=== PATIENT | male | born 1985 | race Caucasian/White ===

== ENCOUNTER 2016-07-22 21:24 | Emergency (ER) | payer OTHER ==
[2016-07-22 21:29] VITALS: BP 124/85; PULSE 109; TEMP 99; BMI 32.3
--- NOTE | 2016-07-22 21:54 | PDOC ---
History of Present Illness - General Chief Complaint: Pain Stated Complaint: B/L POST HEEL PAIN Time Seen by Provider: 07/22/16 21:26 - History of Present Illness Initial Comments: This otherwise healthy 31-year-old man presents with bilateral heel pain the last several days. Patient relates that pain began after he tied laces of his athletic shoes particularly tightly prior to athletic activity several days ago. He felt pressure in the posterior ankle/heel area and subsequently developed swellings in the same area. Since then, the areas are tender and painful, especially with walking with certain shoes. He has no pain when he wears athletic shoes with well cushioned heel area. No previous history of Achilles tendon pain or rupture. He denies weakness of dorsiflexion/plantar flexion of either foot. Past History - Past Medical History Allergies/Adverse Reactions: Allergies Allergy/AdvReac Type Severity Reaction Status Date / Time No Known Allergies Allergy Verified 10/15/15 19:44 Home Medications: Ambulatory Orders Diclofenac Sodium [Voltaren -] 75 mg PO BID PRN #14 tablet. 07/22/16 Other medical history: DENIES - Psycho/Social/Smoking Cessation Hx Anxiety: No Suicidal Ideation: No Smoking Status: No Smoking History: Never smoked Number of Cigarettes Smoked Daily: 0 Hx Alcohol Use: No Drug/Substance Use Hx: No Substance Use Type: None Review of Systems - Review of Systems Able to Perform ROS?: Yes Comments:: 12 point review of systems is negative except for what is noted in the history of present illness *Physical Exam - Vital Signs Last Vital Signs Temp Pulse Resp BP Pulse Ox 99 F 109 H 18 124/85 97 07/22/16 21:26 07/22/16 21:26 07/22/16 21:26 07/22/16 21:26 07/22/16 21:26 - Physical Exam Comments: GENERAL: Adult male, alert and oriented 3, in no acute distres EXTREMITIES: Bilateral lower extremities1 cm x 1 cm firm, mildly tender, non- erythematous area of the posterior ankle just proximal to the heel, No step off of Achilles tendon palpated either side Dorsiflexion/plantar flexion of foot 5/5 bilaterally No calf tenderness or palpable masses NEUROLOGICAL: Cranial nerves II through XII grossly intact. Normal speech. No focal neurological deficits. MUSCULOSKELETAL: Back non-tender to palpation, no CVA tenderness SKIN: Warm, Dry, normal turgor, no rashes or lesions noted. *DC/Admit/Observation/Transfer Diagnosis at time of Disposition: Calcaneal bursitis Qualifiers: Laterality: unspecified laterality Qualified Code(s): M77.50 - Other enthesopathy of unspecified foot - Discharge Dispostion Disposition: HOME Condition at time of disposition: Stable - Prescriptions Prescriptions: Diclofenac Sodium [Voltaren -] 75 mg PO BID PRN #14 tablet.dr MIGUEL Reason: Moderate Pain - Patient Instructions Printed Discharge Instructions: Achilles Tendinopathy Additional Instructions: elevate feet as much as possible can apply ice to areas of swelling as needed no work until Tuesday, July 26 Diclofenac 75mg twice a day as needed for pain be sure to use shoes that fit well return to ER if you experience weakness in either lower leg followup with orthopedist within 1 week as discussed - Post Discharge Activity Work/School Note: Back to Work
[2016-07-22] MEDS ORDERED: NAPROXEN 500 MG TABLET (FP) PO ONE (22:09)
[2016-07-22] MEDS ORDERED: NAPROXEN 500 MG TABLET (FP) ONE (22:13)
== END 2016-07-22 22:23 | disposition home or self-care (01) ==
LOC: FER 21:24
DX: M77.50 Other enthesopathy of unspecified foot and ankle (principal)
CPT/HCPCS: 99282-25

== ENCOUNTER 2017-10-26 22:45 | Emergency (ER) | payer OTHER ==
[2017-10-26 22:52] VITALS: BP 125/78; PULSE 62; TEMP 98; BMI 29.6
[2017-10-26] MEDS ORDERED: SULFAMETHOXAZOLE/TRIMETHOPRIM 800MG/160MG D.S. TABLET ONE (23:39)
[2017-10-26] MEDS ORDERED: SULFAMETHOXAZOLE/TRIMETHOPRIM 800MG/160MG D.S. TABLET PO ONE (23:40)
--- NOTE | 2017-10-26 23:41 | PDOC ---
History of Present Illness - General Chief Complaint: Wound Stated Complaint: REDNESS/SWELLING L 1ST TOE Time Seen by Provider: 10/26/17 22:50 Past History - Past Medical History Allergies/Adverse Reactions: Allergies Allergy/AdvReac Type Severity Reaction Status Date / Time No Known Allergies Allergy Verified 10/15/15 19:44 Home Medications: Ambulatory Orders NK [No Known Home Medication] 10/26/17 COPD: No - Suicide/Smoking/Psychosocial Hx Smoking Status: No Smoking History: Never smoked Have you smoked in the past 12 months: No Number of Cigarettes Smoked Daily: 0 Information on smoking cessation initiated: No Hx Alcohol Use: No Drug/Substance Use Hx: No Substance Use Type: None *Physical Exam - Vital Signs Last Vital Signs Temp Pulse Resp BP Pulse Ox 98 F 62 14 125/78 100 10/26/17 22:49 10/26/17 22:49 10/26/17 22:49 10/26/17 22:49 10/26/17 22:49 *DC/Admit/Observation/Transfer Diagnosis at time of Disposition: Cellulitis of great toe, right - Discharge Dispostion Disposition: HOME Condition at time of disposition: Good Decision to Admit order: No - Referrals - Patient Instructions Additional Instructions: Remove the packing in 24 hours and start the socket hot soaks as described by the doctor. Tylenol or Motrin as needed for pain. Follow-up with a ticket sales supervisor for further management of the ingrown toenail. Return to the emergency department immediately with ANY new, persistent or worsening symptoms. Continue any medications as previously prescribed by your physician. You should follow up with your primary doctor as soon as possible regarding today's emergency department visit. . Please make sure your doctor reviews the results of your emergency evaluation. Thank you for coming to the Emergency Department today for your care. It was a pleasure to see you today. Please note that your evaluation is INCOMPLETE until you follow-up with your doctor. - Post Discharge Activity Forms/Work/School Notes: Back to Work
== END 2017-10-26 23:46 | disposition home or self-care (01) ==
LOC: FER 22:45
DX: L03.031 Cellulitis of right toe (principal)
CPT/HCPCS: 99282-25

== ENCOUNTER 2018-02-01 22:27 | Emergency (ER) | payer OTHER ==
[2018-02-01 22:37] VITALS: BP 121/80; PULSE 65; TEMP 98.4; BMI 30.2
--- NOTE | 2018-02-01 23:05 | PDOC ---
History of Present Illness - General Chief Complaint: Pain, Acute Stated Complaint: L FLANK/DIRRHEA/POSS FEVER Time Seen by Provider: 02/01/18 23:04 - History of Present Illness Initial Comments: This 32-year-old man with no significant past medical history presents with a 2 day history of right flank pain and 2 day history of intermittent diarrhea. Patient describes flank pain as being mild to moderate and steady in nature. He has taken ibuprofen for the pain with some relief; there has been no hematuria/dysuria/urinary frequency or urgency. No previous history of renal stones. No history of right upper quadrant abdominal pain. He noted onset of frequent, watery stools over the last 2 days. No blood or mucus in the stool. Subjective fever today; no measured fever/chills. No vomiting noted. Patient states that he ate a large amount of hot sauce in a meal several days ago. He subsequently had abdominal discomfort then onset of current symptoms. Nonsmoker; denies alcohol or other recreational drug use On no medications No known ALLERGIES Past History - Past Medical History Allergies/Adverse Reactions: Allergies Allergy/AdvReac Type Severity Reaction Status Date / Time No Known Allergies Allergy Verified 10/15/15 19:44 Home Medications: Ambulatory Orders NK [No Known Home Medication] 10/26/17 COPD: No - Suicide/Smoking/Psychosocial Hx Smoking Status: No Smoking History: Unknown if ever smoked Have you smoked in the past 12 months: No Number of Cigarettes Smoked Daily: 0 Information on smoking cessation initiated: No Hx Alcohol Use: No Drug/Substance Use Hx: No Substance Use Type: None Review of Systems - Review of Systems Able to Perform ROS?: Yes Comments:: 12 point review of systems is negative except for what is noted in the history of present illness *Physical Exam - Vital Signs Last Vital Signs Temp Pulse Resp BP Pulse Ox 98.4 F 65 14 121/80 98 02/01/18 22:32 02/01/18 22:32 02/01/18 22:32 02/01/18 22:32 02/01/18 22:32 - Physical Exam Comments: GENERAL: Adult male, alert and oriented 3, in no acute distress HEAD: Normal with no signs of trauma. EYES: PERRLA, EOMI, sclera anicteric, conjunctiva clear. ENT: Ears normal, nares patent, oropharynx clear without exudates. Dry mucous membranes. NECK: Normal range of motion, supple without lymphadenopathy, JVD, or masses. LUNGS: Breath sounds equal, clear to auscultation bilaterally. No wheezes, and no crackles. HEART:Regular rate and rhythm, normal S1 and S2 without murmur, rub or gallop. ABDOMEN:.normal bowel sounds No guarding,tenderness or rebound.No masses No distention. EXTREMITIES: Normal range of motion, no edema. No clubbing or cyanosis. No erythema, or tenderness. NEUROLOGICAL: Cranial nerves II through XII grossly intact. Normal speech. No focal neurological deficits. MUSCULOSKELETAL: Mild tenderness to palpation right flank/right CVA; no other tenderness or abnormalities SKIN: Warm, Dry, normal turgor, no rashes or lesions noted. ED Treatment Course - LABORATORY CBC & Chemistry Diagram: 02/01/18 23:10 02/01/18 23:10 Progress Note - Progress Note Progress Note: Renal stone protocol helical CT performed because of microscopic hematuria and presence of right flank pain. CT reveals no evidence of hydronephrosis/hydroureter, ureteral stones or other abnormality except fatty liver(previously seen). Flank pain may be related to patient's ongoing intra-abdominal process(diarrhea) ; doubt related to hepatic steatosis. No evidence of new acute process. Patient will be discharged with instructions to continue fluid intake, rest (no work for the next 2 days). He should return to the ER if he has profuse or bloody diarrhea, lightheadedness, vomiting or fever. Otherwise, he should follow-up with his PMD, Dr. Maya. *DC/Admit/Observation/Transfer Diagnosis at time of Disposition: Dehydration Diarrhea Qualifiers: Diarrhea type: unspecified type Qualified Code(s): R19.7 - Diarrhea, unspecified - Discharge Dispostion Disposition: HOME Condition at time of disposition: Stable - Referrals Referrals: Charity Maya MD [Primary Care Provider] - - Patient Instructions Printed Discharge Instructions: Diarrhea Additional Instructions: Drink plenty of fluids Advance diet to rice/bananas/bread as tolerated Return to ER if you have vomiting/increased pain/blood in stool or fever No work the next 2 days Follow-up with Dr. Maya you if you have diarrhea for more than 5-7 days - Post Discharge Activity Forms/Work/School Notes: Back to Work
[2018-02-01 23:19] LABS: BASO % 1.9 % (0-2.0); EOS % 4.8 % (0-4.5); HEMATOCRIT 42.8 % (35.4-49); HEMOGLOBIN 14.6 GM/dl (11.7-16.9); LYMPH % 39.9 % (8-40); MCH 30.1 pg (25.7-33.7); MCHC 34.2 g/dl (32.0-35.9); MEAN CELL VOLUME 88.1 fl (80-96); MONO % 11.2 % (3.8-10.2); NEUT % 42.2 % (42.8-82.8); PLATELET COUNT 265 K/MM3 (134-434); RBC 4.86 M/mm3 (4.00-5.60); RDW 11.9 % (11.9-15.9); WHITE BLOOD COUNT 6.9 K/mm3 (4.0-10.8)
[2018-02-01 23:24] LABS: URINE APPEARANCE Clear; URINE BILIRUBIN Negative (NEGATIVE); URINE COLOR Yellow; URINE GLUCOSE (UA) Negative (NEGATIVE); URINE KETONE Trace (NEGATIVE); URINE LEUK ESTERASE Negative (NEGATIVE); URINE NITRITE Negative (NEGATIVE); URINE PROTEIN Negative (NEGATIVE); URINE UROBILINOGEN 0.2 (0.2-1.0)
[2018-02-01 23:30] LABS: ALBUMIN 4.4 g/dl (3.5-5.0); ALK PHOS 67 U/L (32-92); ANION GAP 6 MMOL/L (8-16); BILIRUBIN,TOTAL 1.2 mg/dl (0.2-1.0); BLOOD UREA NITROGEN 15 mg/dl (7-18); CALCIUM 9.3 mg/dl (8.4-10.2); CHLORIDE 103 mmol/L (98-107); CO2 30 mmol/L (22-28); CREATININE 0.8 mg/dl (0.6-1.3); GLUCOSE,RANDOM 96 mg/dl (74-106); POTASSIUM 3.8 mmol/L (3.5-5.1); SGOT/AST 47 U/L (10-42); SGPT/ALT 73 U/L (10-40); SODIUM 139 mmol/L (136-145); TOT PROT 8.4 g/dl (6.4-8.3)
[2018-02-01 23:32] LABS: URINE WBC 0-2 (0-2)
[2018-02-02] MEDS ORDERED: KETOROLAC TROMETHAMINE 30 MG/1 ML VIAL IVPUSH ONE (00:51)
[2018-02-02] MEDS ORDERED: SODIUM CHLORIDE 1,000 ML IV STA (00:51)
[2018-02-02] MEDS ORDERED: KETOROLAC TROMETHAMINE 30 MG/1 ML VIAL ONE (01:00)
== END 2018-02-02 02:38 | disposition home or self-care (01) ==
LOC: FER 22:27
PROC: 3E0333Z Introduction of Anti-inflammatory into Peripheral Vein, Percutaneous Approach (ICD-10-PCS; principal; 2018-02-01)
PROC: 3E0337Z Introduction of Electrolytic and Water Balance Substance into Peripheral Vein, Percutaneous Approach (ICD-10-PCS; 2018-02-01)
DX: E86.0 Dehydration (principal); R19.7 Diarrhea, unspecified
CPT/HCPCS: 36415; 74176; 80053; 81003; 81015; 85025; 99283-25; J7030

== ENCOUNTER 2018-06-02 12:00 | Emergency (ER) | payer OTHER ==
[2018-06-02 12:16] VITALS: BP 132/87; PULSE 83; TEMP 98.3; BMI 30.1
[2018-06-02] MEDS ORDERED: ACETAMINOPHEN 500 MG TABLET (FP) PO ONE (12:17)
--- NOTE | 2018-06-02 12:20 | PDOC ---
History of Present Illness - General Chief Complaint: Laceration Stated Complaint: SCALP LACERATION Time Seen by Provider: 06/02/18 12:02 - History of Present Illness Initial Comments: 06/02/18 12:18 33 M with no PMH presents to ED with laceration to scalp after hitting his head. Pt states that he was bent down, and as he stood up, he hit his head against a sign. Pt denies LOC. Now complains of mild pressure in his head but no N/V. no neck pain. Pt states last Tdap was 2 years ago. Past History - Past Medical History Allergies/Adverse Reactions: Allergies Allergy/AdvReac Type Severity Reaction Status Date / Time No Known Allergies Allergy Verified 06/02/18 12:01 Home Medications: Ambulatory Orders NK [No Known Home Medication] 10/26/17 COPD: No - Immunization History TDAP Vaccination: Yes (10/15/15) - Suicide/Smoking/Psychosocial Hx Smoking Status: No Smoking History: Never smoked Have you smoked in the past 12 months: No Number of Cigarettes Smoked Daily: 0 Hx Alcohol Use: No Drug/Substance Use Hx: No Substance Use Type: None Review of Systems - Review of Systems Comments:: 06/02/18 12:19 GENERAL/CONSTITUTIONAL: No fever or chills. No weakness. HEAD, EYES, EARS, NOSE AND THROAT: No change in vision. No ear pain or discharge. No sore throat. CARDIOVASCULAR: No chest pain, no shortness of breath, no loss of consciousness RESPIRATORY: No cough, wheezing, or hemoptysis. GASTROINTESTINAL: No nausea, vomiting, diarrhea or constipation. GENITOURINARY: No dysuria, frequency, or change in urination. MUSCULOSKELETAL: No joint or muscle swelling or pain. No neck or back pain. SKIN: + laceration NEUROLOGIC: + headache, No vertigo, no change in strength/sensation. ENDOCRINE: No increased thirst. No abnormal weight change. HEMATOLOGIC/LYMPHATIC: No anemia, easy bleeding, or history of blood clots. ALLERGIC/IMMUNOLOGIC: No hives or skin allergy. *Physical Exam - Vital Signs Last Vital Signs Temp Pulse Resp BP Pulse Ox 98.3 F 83 16 132/87 100 06/02/18 12:01 06/02/18 12:01 06/02/18 12:01 06/02/18 12:01 06/02/18 12:01 - Physical Exam Comments: 06/02/18 12:19 "GENERAL: Awake, alert, and fully oriented, in no acute distress. HEAD: No signs of trauma EYES: PERRLA, EOMI, sclera anicteric, conjunctiva clear ENT: Auricles normal inspection, hearing grossly normal, nares patent, oropharynx clear without exudates. Moist mucosa NECK: Nontender, no stepoffs, Normal ROM, supple, no lymphadenopathy, JVD, or masses LUNGS: Breath sounds equal, clear to auscultation bilaterally. No wheezes, and no crackles HEART: Regular rate and rhythm, normal S1 and S2, no murmurs, rubs or gallops ABDOMEN: Soft, nontender, normoactive bowel sounds. No guarding, no rebound. No masses EXTREMITIES: Normal range of motion, no edema. No clubbing or cyanosis. No cords, erythema, or tenderness NEUROLOGICAL: Cranial nerves II through XII intact. 5/5 strength and sensation in all extremities, Normal speech, normal gait, normal cerebellar function SKIN: + 2cm linear laceration to top of scalp Moderate Sedation - Procedure Monitoring Vital Signs: Procedure Monitoring Vital Signs Temperature 98.3 F 06/02/18 12:01 Pulse Rate 83 06/02/18 12:01 Respiratory Rate 16 06/02/18 12:01 Blood Pressure 132/87 06/02/18 12:01 O2 Sat by Pulse Oximetry (%) 100 06/02/18 12:01 Procedures - Laceration/Wound Repair Head Wound Length: to 2.5 cm Wound Explored: clean Wound's Depth, Shape: superficial Irrigated w/ Saline: Yes Anesthesia: 1% Lidocaine Wound Repaired With: Marble Number of Sutures: 3 Medical Decision Making - Medical Decision Making 06/02/18 12:20 33 M with scalp laceration after hitting his head against a sign. No indication for CT head per emirati head CT rules. Tdap is up to date. - Irrigate - Lac repair - Tylenol 06/02/18 12:33 Lac repaired with 3 humera Pt is well appearing, with normal vitals. Clinically stable for DC at this time. I discussed the physical exam findings, ancillary test results and final diagnoses with the patient. I answered all of the patient's questions. The patient was satisfied with the care received and felt comfortable with the discharge plan and treatment plan. The patient agrees to follow up with the primary care physician within 24-72 hours. *DC/Admit/Observation/Transfer Diagnosis at time of Disposition: Scalp laceration - Discharge Dispostion Disposition: HOME Condition at time of disposition: Good - Referrals Referrals: Charity Maya MD [Primary Care Provider] - - Patient Instructions Printed Discharge Instructions: DI for Laceration Repair Additional Instructions: Return to the ER for staple removal in 5-7 days. If you experience pain, swelling, redness, or any other concerning symptoms, return to the ER immediately - Post Discharge Activity Forms/Work/School Notes: Back to Work - Attestations Physician Attestion: 06/02/18 12:34 I, Dr. Jarett Hood MD, attest that this document has been prepared under my direction and personally reviewed by me in its entirety. I further attest, that it accurately reflects all work, treatment, procedures and medical decision -making performed by me.
[2018-06-02] MEDS ORDERED: ACETAMINOPHEN 500 MG TABLET (FP) ONE (12:41)
== END 2018-06-02 12:47 | disposition home or self-care (01) ==
LOC: FER 12:00
PROC: 0HQ0XZZ Repair Scalp Skin, External Approach (ICD-10-PCS; principal; 2018-06-02)
DX: S01.01XA Laceration without foreign body of scalp, initial encounter (principal); W22.8XXA Striking against or struck by other objects, initial encounter; Y93.89 Activity, other specified; Y92.9 Unspecified place or not applicable
CPT/HCPCS: 99282-25